=== PATIENT | female | born 1970 | race Caucasian/White ===

== ENCOUNTER 2018-02-26 12:34 | Inpatient (IN) | payer SELFPAY ==
--- NOTE | 2018-02-26 13:14 | ED ---
Substance Abuse/Use - HPI Summary HPI Summary: Pt is a 47 y/o F presenting to the ED with a detox request. She has been drinking on and off for a long time, and has used amphetamines in the past. She had some beer this morning prior to arrival, has high blood pressure, and is burning up. She had some suicidal thoughts yesterday. - History Of Current Complaint Chief Complaint: EDDetoxRequest Stated Complaint: GENERAL Time Seen by Provider: 02/26/18 12:46 Hx Obtained From: Patient Onset/Duration of Drug/ETOH Abuse: Hours Timing Of Abuse: Daily Severity Initially: Mild Severity Currently: Moderate Character: Anxious Aggravating Factor(s): Nothing Alleviating Factor(s): Nothing Associated Signs And Symptoms: Other: - high blood pressure, burning up Related Hx: Suicidal: Thoughts - Allergies/Home Medications Allergies/Adverse Reactions: Allergies Allergy/AdvReac Type Severity Reaction Status Date / Time No Known Allergies Allergy Verified 02/26/18 12:44 Home Medications: Home Medications NK [No Home Medications Reported] 02/26/18 [History Confirmed 02/26/18] PMH/Surg Hx/FS Hx/Imm Hx Previously Healthy: No Endocrine/Hematology History: Denies: Hx Diabetes Psychiatric History: Reports: Hx Substance Abuse Infectious Disease History: No Infectious Disease History: Denies: Traveled Outside the [place] in Last 30 Days - Family History Known Family History: Negative: Renal Disease - Social History Lives: Alone Alcohol Use: Daily Substance Use Type: Reports: Other - amphetamines Review of Systems Negative: Fever Positive: Anxious All Other Systems Reviewed And Are Negative: Yes Physical Exam - Summary Physical Exam Summary: Appearance: Well appearing, anxious affect Skin: warm, dry, reflects adequate perfusion, diffuse rash all over body Head/face: normal Eyes: EOMI, FATOU ENT: normal Neck: supple, non-tender Respiratory: CTA, breath sounds present Cardiovascular: RRR, pulses symmetrical Abdomen: non-tender, soft Musculoskeletal: normal, strength/ROM intact Neuro: normal, sensory motor intact, A&Ox3 Triage Information Reviewed: Yes Vital Signs On Initial Exam: Initial Vitals Temp Pulse Resp BP Pulse Ox 97.9 F 105 16 205/130 99 02/26/18 12:42 02/26/18 12:42 02/26/18 12:42 02/26/18 12:42 02/26/18 12:42 Vital Signs Reviewed: Yes Diagnostics - Vital Signs Vital Signs Temp Pulse Resp BP Pulse Ox 02/26/18 12:42 97.9 F 105 16 205/130 99 - Laboratory Result Diagrams: 02/26/18 13:14 02/26/18 13:14 Lab Statement: Any lab studies that have been ordered have been reviewed, and results considered in the medical decision making process. Course/Dx - Course Course Of Treatment: Pt is a 47 y/o F presenting to the ED with a detox request. She has been drinking on and off for a long time, and has used meth in the past. Bloodwork/UA obtained. The final dx is alcohol withdrawal. The pt will be admitted to the hospitalist, and the pt is agreeable with this plan. - Diagnoses Differential Diagnosis/HQI/PQRI: Positive: Alcohol Abuse, Alcohol Withdrawal, Anxiety, Depression Provider Diagnoses: Alcohol intoxication, Alcohol withdrawal - Physician Notifications Discussed Care Of Patient With: Jasvir Harris - hospitalist Time Discussed With Above Provider: 15:55 Instructed by Provider To: Admit As Inpatient Discharge - Sign-Out/Discharge Documenting (check all that apply): Patient Departure - admit - Discharge Plan Condition: Stable Disposition: ADMITTED TO [facility] Ref[place]: [facility] [place]] - Billing Disposition and Condition Condition: STABLE Disposition: Admitted to [facility] - Attestation Statements Document Initiated by Matheus: Yes Documenting Scribe: Sonja Orellana Provider For Whom Matheus is Documenting (Include Credential): Aníbal Betancur MD. Scribe Attestation: Sonja Goode scribed for Aníbal Betancur MD. on 02/26/18 at 1628. Scribe Documentation Reviewed: Yes Provider Attestation: The documentation as recorded by the Sonja asher accurately reflects the service I personally performed and the decisions made by , Aníbal Betancur MD. Status of Scribe Document: Viewed
[2018-02-26 13:20] LABS: ABS Basophils 0.1 10^3/ul (0-0.2); ABS Eosinophils 0.1 10^3/ul (0-0.6); ABS Monocytes 0.4 10^3/ul (0-0.8); ABS Neutrophils 5.6 10^3/ul (1.5-7.7); ABS Nucleated RBC 0 10^3/ul; Eosinophil % 1.2 %; Hematocrit 40 % (35-47); Hemoglobin 13.5 g/dl (12.0-16.0); Lymphocyte % 24.1 %; Mean Corpuscular HGB Conc 33 g/dl (31-36); Mean Corpuscular Hemoglobin 28 pg (27-31); Mean Corpuscular Volume 83 fL (80-97); Mean Platelet Volume 6.7 fL (7.4-10.4); Nucleated Red Blood Cells % 0; Platelet Count 459 10^3/ul (150-450); Red Blood Count 4.89 10^6/ul (4.00-5.40); Red Cell Distribution Width 17 % (10.5-15); White Blood Count 8.1 10^3/ul (3.5-10.8)
[2018-02-26 13:44] LABS: ALT 17 U/L (7-52); AST 21 U/L (13-39); Albumin 4.4 g/dL (3.2-5.2); Albumin/Globulin Ratio 1.3 (1-3); Alkaline Phosphatase 69 U/L (34-104); Anion Gap 11 mmol/L (2-11); BUN/Creatinine Ratio 17.2 (8-20); Blood Urea Nitrogen 15 mg/dL (6-24); CO2 Carbon Dioxide 24 mmol/L (22-32); Calcium 9.8 mg/dL (8.6-10.3); Chloride 101 mmol/L (101-111); EGFR Non-African American 69.2 (>60); Globulin 3.3 g/dL (2-4); Glucose 83 mg/dL (70-100); Potassium 3.5 mmol/L (3.5-5.0); Sodium 136 mmol/L (135-145); Total Protein 7.7 g/dL (6.4-8.9)
[2018-02-26 13:50] LABS: HCG Pregnancy < 0.60 mIU/mL
[2018-02-26 13:58] LABS: Acetaminophen < 15 mcg/mL; Alcohol 33 mg/dL (<10); Salicylate < 2.50 mg/dL (<30)
[2018-02-26 14:14] LABS: TSH (Thyroid Stimulating Horm) 2.26 mcIU/mL (0.34-5.60)
[2018-02-26] MEDS ORDERED: cloNIDine TAB* 0.1 MG PO ONE ×2 (15:06→15:09)
[2018-02-26] MEDS ORDERED: cloNIDine TAB* 0.1 MG ONE (15:08)
[2018-02-26 15:50] LABS: Barbiturates Urine Screen None Detected (None Detect); Benzodiazepine Urine Screen None Detected (None Detect); Urine Cannabinoids Screen None Detected (None Detect)
[2018-02-26] MEDS ORDERED: LORazepam TAB(*) 1 MG PO ONE (15:54)
[2018-02-26] MEDS ORDERED: Acetaminophen TAB* 325 MG PO PRN (16:41)
[2018-02-26] MEDS ORDERED: Al Hydrox/Mg Hydrox/Simet LIQ* 30 ML UDC PO PRN (16:41)
[2018-02-26] MEDS ORDERED: Ondansetron INJ* 2 MG/ML VIAL IV PRN (16:41)
[2018-02-26] MEDS ORDERED: Thiamine IV* 100 MG/ML 2 ML VIAL IM ONE (16:44)
[2018-02-26] MEDS ORDERED: NS 0.9% 1000 ML* 1,000 ML IV SCH (16:45)
[2018-02-26] MEDS ORDERED: hydrALAZINE IV* 20 MG/ML VIAL IV SLOW PU PRN (16:45)
[2018-02-26] MEDS ORDERED: NS 0.9% 1000 ML* 1,000 ML IV ONE (16:53)
[2018-02-26 16:57] LABS: Urine Appearance Cloudy; Urine Blood Negative (Negative); Urine Color Yellow; Urine Ketones Negative (Negative); Urine Protein 1+(30 mg/dL) (Negative); Urine Specific Gravity 1.015 (1.010-1.030); Urine Urobilinogen Negative (Negative)
[2018-02-26 16:58] LABS: Urine Bilirubin Negative (Negative); Urine Glucose Negative (Negative); Urine Nitrite Negative (Negative)
[2018-02-26] MEDS ORDERED: LORazepam INJ* 2 MG/ML 1 ML VIAL IV PUSH SCH (17:00)
[2018-02-26 17:06] LABS: Urine Bacteria Absent (Absent); Urine Red Blood Cell Absent (Absent); Urine White Blood Cell 2+(11-20/hpf) (Absent)
--- NOTE | 2018-02-26 20:38 | HP ---
AMENDED REPORT NOW INCLUDES DESIGNATED COSIGNER HISTORY AND PHYSICAL: DATE OF ADMISSION: 02/26/18 PRIMARY CARE PROVIDER: None. ATTENDING PHYSICIAN: Dr. Jasvir Harris * (dictated by Marie Blas NP). CHIEF COMPLAINT: Alcohol withdrawal. HISTORY OF PRESENT ILLNESS: Ms. Sanchez is a 47-year-old female with past medical history of alcohol abuse, ADHD, depression and anxiety, who presented to the emergency room today seeking admission to the hospital for alcohol withdrawal management. The patient has a longstanding history of alcohol dependence. She reports that she began drinking in her mid 20s. She describes herself as a binge drinker and reports that she has had multiple periods of sobriety since she began drinking. The most recent period was 1-1/2 years of sobriety. Approximately 1 month ago, she began drinking again due to family stressors, although she reports that she had not been drinking significantly this past month. She does report that in the last week she has been binge drinking. It is difficult for her to quantify the amount of alcohol, though she reports that yesterday she drank 1 pint of vodka, a 6-pack of beer and multiple shots of hard liquor. She does note that she recently moved to the area from [place] and so she does lack a good support system. She has had legal trouble from her alcoholism and has had 2 DWIs, with the most recent in 2012. She does not have a license at this time, which is one of her stressors as she is not able to drive. The patient does report that she was taking methylphenidate up until approximately 1 week ago. This was being prescribed to her by her previous doctor in [place], though she has been off it for 1 week. She also reports that approximately 10 days ago she went to the emergency room at [facility] because of a toothache and was prescribed a 14-day course of clindamycin, which she has completed 10 days of. She denies any further dental pain. In the emergency room, the patient had labs, which were essentially unremarkable. She did have a serum alcohol level of 33 and reported that she had drank approximately 1 hour prior to presenting to the emergency room. She was noted to have multiple small lesions covering her body and reports that approximately a year ago she had a staph infection for which she was treated with antibiotics. She was noted to be hypertensive with systolic blood pressure up to the 200s and diastolic up to 130. After my exam with the patient , the patient's nurse was in the room placing a new IV, the patient did report a fear of needles and had a vasovagal episode, during which time her blood pressure dropped to 77/43. She did not lose consciousness and recovered quickly. Blood pressure a few minutes later was 113/82. Because of the need for monitoring during this acute alcohol withdrawal, the hospitalist service was asked to evaluate for admission. PAST MEDICAL HISTORY: 1. Alcohol abuse. 2. IV drug use (last used approximately 3 years ago). 3. ADHD. 4. Depression. 5. Anxiety. PAST SURGICAL HISTORY: None. HOME MEDICATIONS: Clindamycin, unknown dose. ALLERGIES: No known drug allergies. FAMILY HISTORY: The patient reports that her mother has had a valve replacement , lymphoma, and hypertension. She reports that her father has hypertension, hyperlipidemia and has had a bypass in the past. She notes one of her sisters recently had a TIA. SOCIAL HISTORY: The patient denies any tobacco or current recreational drug use. She reports that she used heroin intravenously approximately 10 to 12 times 3 years ago, though she has not used any illicit drugs since that time. She is not currently employed and she lives with her significant other. Her significant other, Harrison Chatterjee, will be her surrogate decision maker in the event she is unable to make her own decisions. REVIEW OF SYSTEMS: An 11-point review of systems was performed and all the pertinent positive and negative findings are in the HPI. All other systems are negative. PHYSICAL EXAMINATION GENERAL: Ms. Sanchez is a well-developed, well-nourished white woman, sitting up in bed, in no acute distress. She appears her stated age. VITAL SIGNS: Temp 97.9, heart rate 75, respiratory rate 30, oxygen saturation 100% on room air, and blood pressure 113/82. HEENT: Head is normocephalic, atraumatic. Visual bryant are grossly intact. Pupils are equal, round, and reactive to light and accommodation. Sclerae without icterus. Oral mucous membranes moist. NECK: Full range of motion. Trachea at midline. No lymphadenopathy. RESPIRATORY: Symmetrical chest expansion. No chest wall deformities. Lungs clear to auscultation throughout. No rhonchi, wheezes, or rales. CARDIOVASCULAR: Regular rate and rhythm. S1, S2 present. No murmurs, rubs, or gallops. ABDOMEN: Soft, nontender to palpation. Bowel sounds normoactive throughout. No hepatomegaly. EXTREMITIES: Skin warm and smooth bilaterally. No edema. No clubbing or cyanosis. Pedal pulses 2+ bilaterally. MUSCULOSKELETAL: Full range of motion. No pain or deformities. NEURO: Awake, alert, and oriented x4. She is hyperverbal and has a disorganized thought process. Cranial nerves II through XII are grossly intact. Moves all extremities. SKIN: There are multiple scattered erythematous lesions measuring approximately 1 to 3 cm in diameter. There is no evidence of infection in any of these lesions. DIAGNOSTIC STUDIES/LAB DATA: WBC 8.1, RBC 4.89, hemoglobin 13.5, hematocrit 40 , platelets 459. Sodium 136, potassium 3.5, chloride 101, carbon dioxide 24, BUN 15, creatinine 0.87, glucose 83. Total bili 0.5, AST 21, ALT 17, alk phos 69. Urinalysis shows 1+ protein and 2+ wbc's. Toxicology screen is negative. Serum alcohol 33. ASSESSMENT AND PLAN: Ms. Sanchez is a 47-year-old female with past medical history of alcohol dependence, attention deficit hyperactivity disorder, depression and anxiety, who presented to the emergency room today seeking admission for alcohol withdrawal. She will be admitted inpatient for: 1. Alcohol withdrawal. At this point, the patient has mild symptoms including nausea, a very mild tremor and some notable hypertension. She was given 2 mg of lorazepam in the emergency room. She will be placed on WAM protocol every 2 hours with IV lorazepam. She has also been placed on folic acid, thiamine and a multivitamin for prophylaxis. I have placed a nursing home social worker consult due to her alcohol dependence. I will also place her on telemetry to monitor for tachycardia. 2. Attention deficit hyperactivity disorder, depression, and anxiety. The patient is not currently taking any medications. She does note that she has had some suicidal thoughts in the last month, though does not currently have any suicidal thoughts and feels as though her suicidal thoughts may coincide with her menstrual cycle. I have placed a psych consult, though she does not require a one-to-one at this point. 3. Fluids, electrolytes, and nutrition: I will place the patient on normal saline at 100 mL per hour overnight and we will reassess the need for IV fluids in the morning. She does not require any electrolyte repletion at this time. I have ordered a regular diet. 4. Code status: The patient will be a full code. 5. DVT prophylaxis: According to the DVT Risk Assessment, the patient scores a 1 putting her at low risk. I have ordered RAYO stockings. TIME SPENT: Approximately 60 minutes was spent on this admission, greater than half of that time spent [id number] with the patient obtaining my history, performing my physical exam, and reviewing the plan of care. This case has been reviewed with my attending, Dr. Harris, who is in agreement with the plan of care. MARIE BLAS, PAIL TESTER [id number]/[facility] #: [id number] JAY
[2018-02-27 06:25] LABS: ABS Basophils 0 10^3/ul (0-0.2); ABS Eosinophils 0.3 10^3/ul (0-0.6); ABS Monocytes 0.3 10^3/ul (0-0.8); ABS Neutrophils 2.6 10^3/ul (1.5-7.7); ABS Nucleated RBC 0 10^3/ul; Eosinophil % 5.4 %; Hematocrit 36 % (35-47); Hemoglobin 12.1 g/dl (12.0-16.0); Lymphocyte % 38.5 %; Mean Corpuscular HGB Conc 34 g/dl (31-36); Mean Corpuscular Hemoglobin 28 pg (27-31); Mean Corpuscular Volume 83 fL (80-97); Mean Platelet Volume 6.8 fL (7.4-10.4); Nucleated Red Blood Cells % 0.2; Platelet Count 340 10^3/ul (150-450); Red Blood Count 4.28 10^6/ul (4.00-5.40); Red Cell Distribution Width 17 % (10.5-15); White Blood Count 5.3 10^3/ul (3.5-10.8)
[2018-02-27 06:46] LABS: BUN/Creatinine Ratio 19.7 (8-20); EGFR Non-African American 80.9 (>60); Potassium 3.8 mmol/L (3.5-5.0)
[2018-02-27] MEDS: Folic Acid TAB* 1 MG PO SCH (09:42)
[2018-02-27] MEDS: LORazepam TAB(*) 1 MG PO SCH (09:42)
[2018-02-27] MEDS: Multivitamins/Minerals TAB PO SCH (09:42)
[2018-02-27] MEDS: Thiamine TAB* 100 MG TAB PO SCH (09:42)
--- NOTE | 2018-02-27 13:51 | PN ---
Subjective Date of Service: 02/27/18 Interval History: Ms. Sanchez is feeling better today. She feels as though her symptoms are somewhat improved, but she continues to have nausea and a mild tremor. She slept well overnight. No hallucinations or confusion. She is motivated to remain sober. She denies CP, SOB, dizziness. Family History: Unchanged from Admission Social History: Unchanged from Admission Past Medical History: Unchanged from Admission Objective Active Medications: Acetaminophen (Tylenol Tab*) 650 mg PO Q4H PRN FEVER/PAIN Al Hydrox/Mg Hydrox/Simethicone (Maalox Plus*) 30 ml PO Q6H PRN INDIGESTION Folic Acid (Folvite Tab*) 1 mg PO DAILY [facility] Hydralazine HCl (Apresoline Iv*) 5 mg IV SLOW PU Q6H PRN BLOOD PRESSURE Lorazepam (Ativan Tab(*)) 0 - 6 mg PO .PER [facility] PROTOCOL [facility]; Protocol Multivitamins/Minerals (Theragran/Minerals Tab*) 1 tab PO DAILY [facility] Ondansetron HCl (Zofran Inj*) 4 mg IV Q4H PRN NAUSEA/VOMITING Thiamine HCl (Vitamin B-1 Tab*) 100 mg PO DAILY [facility] Vital Signs - 8 hr 02/27/18 02/27/18 02/27/18 06:12 08:00 08:36 Temperature 98.2 F Pulse Rate 71 79 Respiratory 18 16 20 Rate Blood Pressure 156/81 146/81 (mmHg) O2 Sat by Pulse 100 99 Oximetry 02/27/18 02/27/18 02/27/18 09:04 09:42 10:18 Temperature 97.7 F 98.2 F Pulse Rate 71 79 Respiratory 14 16 20 Rate Blood Pressure 143/98 159/95 (mmHg) O2 Sat by Pulse 98 100 Oximetry 02/27/18 02/27/18 12:32 13:01 Temperature 96.7 F Pulse Rate 79 Respiratory 14 16 Rate Blood Pressure 131/75 (mmHg) O2 Sat by Pulse Oximetry Oxygen Devices in Use Now: None Appearance: Middle-aged female laying in bed in NAD; Appears anxious Eyes: No Scleral Icterus Ears/Nose/Mouth/Throat: Mucous Membranes Moist Neck: NL Appearance and Movements; NL JVP, Trachea Midline Respiratory: Symmetrical Chest Expansion and Respiratory Effort, Clear to Auscultation Cardiovascular: NL Sounds; No Murmurs; No JVD, RRR Abdominal: NL Sounds; No Tenderness; No Distention Extremities: No Edema Skin: - - Multiple scattered healing lesions Neurological: Alert and Oriented x 3, NL Gait Lines/Tubes/Other Access: Clean, Dry and Intact Peripheral IV Nutrition: Taking PO's Result Diagrams: 02/27/18 06:05 02/27/18 06:05 Assess/Plan/Problems-Billing Assessment: Ms. Sanchez is a 47 yo F with PMH of polysubstance abuse, ADHD, depression, and anxiety; presented to the ED and was found to be significantly hypertensive and requesting admission for alcohol withdrawal. - Patient Problems (1) Alcohol withdrawal Code(s): F10.239 - ALCOHOL DEPENDENCE WITH WITHDRAWAL, UNSPECIFIED Comment: - Last drink was on the day of admission, alcohol level 33 in the ED - Has gone through withdrawal in the past and experienced severe symptoms including hallucinations, but only experiencing mild tremor and nausea at this time; no seizure history - Social work consult - Continue WAM with lorazepam per protocol, multivitamin, thiamine, folic acid (2) Hypertensive urgency Code(s): I16.0 - HYPERTENSIVE URGENCY Comment: - Secondary to alcohol withdrawal - BP up to 231/112 in the ED; now improved, SBP 130-150s - Improved with lorazepam for WAM protocol - Continue hydralazine PRN (3) ADHD Comment: - Stopped taking methylphenidate approx 1 week ago and does not want to restart , but feels as though she needs help managing her symptoms - Appreciate Psych consult (4) Anxiety and depression Code(s): F41.9 - ANXIETY DISORDER, UNSPECIFIED; F32.9 - MAJOR DEPRESSIVE DISORDER, SINGLE EPISODE, UNSPECIFIED Comment: - Not currently on medication, but would like help managing symptoms - Appreciate Psych consult (5) DVT prophylaxis Current Visit: Yes Status: Acute Code(s): QSZ9607 - SNOMED Code(s): 537374042 Comment: - RAOY stockings and ambulation (6) Full code status Current Visit: Yes Status: Acute Code(s): Z78.9 - OTHER SPECIFIED HEALTH STATUS SNOMED Code(s): 392753284 Comment: Status and Disposition: Inpatient for alcohol withdrawal. Pending social work consult. Anticipate d/c home when medically stable. Attending: Campbell Jeong
[2018-02-27] MEDS: LORazepam TAB(*) 0.5 MG PO PRN ×2 (16:24→21:23)
[2018-02-28] MEDS: LORazepam TAB(*) 1 MG PO SCH ×3 (00:26→15:39)
[2018-02-28] MEDS: Thiamine TAB* 100 MG TAB PO SCH (08:18)
[2018-02-28] MEDS: Folic Acid TAB* 1 MG PO SCH (08:18)
[2018-02-28] MEDS: Multivitamins/Minerals TAB PO SCH (08:18)
[2018-02-28] MEDS ORDERED: cloNIDine TAB* 0.1 MG PO SCH (15:00)
[2018-02-28 15:34] VITALS: BP 172/92
--- NOTE | 2018-02-28 17:24 | PN ---
Subjective Date of Service: 02/28/18 Interval History: Ms. Sanchez is anxious today. She was not pleased with her conversation with Dr. Dykes and is frustrated about lack of medication to manage her symptoms. She understands that outpatient follow up will be necessary. She has threatened to leave AMA multiple times today. Denies CP, SOB, N/V. Withdrawal symptoms improving. Family History: Unchanged from Admission Social History: Unchanged from Admission Past Medical History: Unchanged from Admission Objective Active Medications: Acetaminophen (Tylenol Tab*) 650 mg PO Q4H PRN FEVER/PAIN Al Hydrox/Mg Hydrox/Simethicone (Maalox Plus*) 30 ml PO Q6H PRN INDIGESTION Clonidine HCl (Catapres Tab*) 0.1 mg PO TID [facility] Folic Acid (Folvite Tab*) 1 mg PO DAILY [facility] Hydralazine HCl (Apresoline Iv*) 5 mg IV SLOW PU Q6H PRN BLOOD PRESSURE Lorazepam (Ativan Tab(*)) 0 - 6 mg PO .PER [facility] PROTOCOL [facility]; Protocol Lorazepam (Ativan Tab(*)) 0.5 mg PO Q6H PRN ANXIETY Multivitamins/Minerals (Theragran/Minerals Tab*) 1 tab PO DAILY [facility] Ondansetron HCl (Zofran Inj*) 4 mg IV Q4H PRN NAUSEA/VOMITING Thiamine HCl (Vitamin B-1 Tab*) 100 mg PO DAILY [facility] Vital Signs - 8 hr 02/28/18 02/28/18 02/28/18 10:08 10:25 12:23 Temperature 98.0 F 98.0 F Pulse Rate 77 78 Respiratory 18 16 22 Rate Blood Pressure 154/95 142/73 (mmHg) O2 Sat by Pulse 99 99 Oximetry 02/28/18 02/28/18 02/28/18 12:45 15:24 15:39 Temperature 98.0 F Pulse Rate 94 Respiratory 18 20 18 Rate Blood Pressure 172/92 (mmHg) O2 Sat by Pulse 100 Oximetry Oxygen Devices in Use Now: None Appearance: Middle-aged female sitting in bed in NAD Eyes: No Scleral Icterus Ears/Nose/Mouth/Throat: Mucous Membranes Moist Neck: NL Appearance and Movements; NL JVP, Trachea Midline Respiratory: Symmetrical Chest Expansion and Respiratory Effort, Clear to Auscultation Cardiovascular: NL Sounds; No Murmurs; No JVD, RRR Abdominal: NL Sounds; No Tenderness; No Distention Extremities: No Edema Neurological: Alert and Oriented x 3, NL Gait Lines/Tubes/Other Access: Clean, Dry and Intact Peripheral IV Nutrition: Taking PO's Result Diagrams: 02/27/18 06:05 02/27/18 06:05 Assess/Plan/Problems-Billing Assessment: Ms. Sanchez is a 47 yo F with PMH of polysubstance abuse, ADHD, depression, and anxiety; presented to the ED and was found to be significantly hypertensive and requesting admission for alcohol withdrawal. - Patient Problems (1) Alcohol withdrawal Code(s): F10.239 - ALCOHOL DEPENDENCE WITH WITHDRAWAL, UNSPECIFIED Comment: - Last drink was on the day of admission, alcohol level 33 in the ED - Has gone through withdrawal in the past and experienced severe symptoms including hallucinations, but only experiencing mild tremor and nausea at this time; no seizure history - Social work consult - Continue WAM with lorazepam per protocol, multivitamin, thiamine, folic acid; start clonidine (2) Hypertensive urgency Code(s): I16.0 - HYPERTENSIVE URGENCY Comment: - Secondary to alcohol withdrawal - BP up to 231/112 in the ED; now improved, SBP 130-150s - Improved with lorazepam for WAM protocol - Continue hydralazine PRN (3) ADHD Comment: - Stopped taking methylphenidate approx 1 week ago and does not want to restart , but feels as though she needs help managing her symptoms - Appreciate Psych consult; recommends outpatient follow up, no medication at this time (4) Anxiety and depression Code(s): F41.9 - ANXIETY DISORDER, UNSPECIFIED; F32.9 - MAJOR DEPRESSIVE DISORDER, SINGLE EPISODE, UNSPECIFIED Comment: - Not currently on medication, but would like help managing symptoms - Appreciate Psych consult; recommends outpatient follow up (5) DVT prophylaxis Current Visit: Yes Status: Acute Code(s): JRI4641 - SNOMED Code(s): 425459885 Comment: - Ambulation (6) Full code status Current Visit: Yes Status: Acute Code(s): Z78.9 - OTHER SPECIFIED HEALTH STATUS SNOMED Code(s): 581231834 Comment: Status and Disposition: Inpatient for alcohol withdrawal. Pending social work consult. Anticipate d/c home when medically stable, likely tomorrow. Attending: Jasvir Harris
--- NOTE | 2018-02-28 17:59 | CONS ---
CONSULTATION REPORT: DATE OF CONSULT: 02/28/18. ATTENDING CLINICIAN: Marie Blas NP CONSULTING PHYSICIAN: Dr. José Dykes. REASON FOR CONSULT: Recent suicidal ideation and anxiety. SUBJECTIVE HISTORY: Psychiatry is evaluating this 47-year-old white female with a history of significant alcohol dependence, who is admitted currently to the hospitalist service where she is receding acute detoxification from alcohol. The patient mentioned to the primary team that she has a history of anxiety, depression, and attention deficit disorder and requested consultation with a psychiatrist, particularly for problems with anxiety. She did endorse suicidal ideations as recently as 1 month prior to hospitalization. When I met with the patient, she gives me her story that she had been living in [place] for approximately the last 20 years and had close to 1-1/2 years of sobriety prior to moving to [place], [place] in December 2017 in order to help take care of her father, who has "predementia." Apparently, her 3 youngest children moved with the patient's ex- to [place] and it has been stressful to be away from her kids. An additional stress has been taking care of her father without getting much support from one of her sisters who lives locally. Apparently, the patient relapsed on alcohol 6 weeks ago. She found it hard to cope with living in [place] and felt socially isolated there. She wanted counseling and support for her addiction and mental health problems and felt like moving to [place] was a good place to get enrolled in services. Here, she has a boyfriend who is allowing her to stay with him. I did screen her for neurovegetative symptoms of depression and she did endorse difficulty sleeping; however, she denied anhedonia, guilt, lethargy, concentration problems, appetite disturbance, psychomotor retardation, or current suicidal thinking. She states the most recent she can recall having a suicidal thought was approximately 1 month ago. The patient does endorse a great deal of anxiety telling me that the only two medications that she has tried that have worked were Xanax and Ativan. She denies any history of psychosis or any history of payal. PAST PSYCHIATRIC HISTORY: The patient has previous diagnosis of depression, anxiety and ADHD. She states that until approximately a week ago, she was taking methylphenidate, but then ran out of this. She had been going to an outpatient clinic in [place], [place]. She states that she has had numerous trials of anxiolytics, which have all failed including Paxil, Zoloft, Lexapro, Prozac, Wellbutrin, Celexa, Remeron, Vistaril, BuSpar, and clonidine. "No, no she states, I would not take any of those." She seems to be somewhat med seeking for benzodiazepines. The patient does have a history of 6 to 7 suicide attempts starting at the age of 10 mostly by overdosing, but some by cutting herself. SUBSTANCE ABUSE HISTORY: The patient has been in rehab over 4 times, most recently at the [facility] in [place], [place] where she stayed approximately 9 months until January 2014. She has also had substance abuse inpatient stints at the [facility] both in [place] as well as a facility in [place]. She does indicate that she has dabbled with heroin in the past, but has not used this for 3 years. She denies abuse of tobacco or other illicit drugs. PAST MEDICAL HISTORY: Noncontributory. FAMILY HISTORY: She has an extensive history of both mental illness and substance abuse in her family. Apparently, her paternal aunt shot herself to . She also has a paternal grandfather who in an accident while intoxicated on alcohol. She has a son who is 24 years old who has been abusing heroin and alcohol, although he has been in recovery for the past year. She indicates that he has had suicidal ideations in the past. In addition, she has several cousins with addiction and her father is a recovered alcoholic. SOCIAL HISTORY: The patient was born in [place], [place], but [place], [place]. She does have 2 sisters, an older one and younger one. She is a [employer] graduate who got her undergraduate degree in 2000. She was later for approximately 25 years to the same man , although they just in 2012. Currently, she is in a relationship with a man living here in [place] with whom she is staying. Her current income is based solely on alimony. She has 5 different children, a 27-year-old daughter , 24-year-old son. Her youngest children who are age 16, 13, and 11 are still living with her ex-. 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 Since then, she has been relying on [employer]. Her legal history is quite extensive. She states that she has had between 17 and 18 lifetime incarcerations for crimes related to alcohol intoxication. Her last [facility] stint was in November 2012. Very recently over the fall, she completed probation, although she still does not have a cmv driver's licence secondary to at least 3 total lifetime DWIs. She denies history of service. She denies being mormon or spiritual. MENTAL STATUS EXAMINATION: The patient is a middle-aged white female with eye glasses, who is clean, well groomed, sitting up in bed, makes good eye contact. Her speech is fluent with normal rate, tone, and volume. Mood appears to be mildly anxious with a corresponding anxious affect. Thought process is linear and goal directed. Thought content is significant for her desire to be prescribed benzodiazepines. She denies suicidal or homicidal ideations currently. She denies auditory or visual hallucinations. She denies any symptoms of paranoia. Insight and judgment are fair given her willingness to get hooked up with local substance abuse and mental health services in the community. Cognitively, she is awake and alert with what would appear to be an average intellect. DIAGNOSES: [place] I: Alcohol-induced anxiety disorder, alcohol use disorder. [place] II: Deferred, rule out cluster B traits. IMPRESSION: The patient is a 47-year-old white female with a significant history of alcoholism, who arrived at the hospital, requesting voluntary alcohol detoxification, who is currently on the [address] [place] [address] unit and requesting psychiatric consultation due to anxiety. The patient is somewhat fixated on receiving benzodiazepines and I did explain to her why this would be contraindicated given her ongoing substance abuse problems. I do think that she would be a great candidate for outpatient support in the community and I have recommended that she attend services at the [facility] here in [facility], which she is agreeable with. RECOMMENDATIONS TO PRIMARY TEAM: The patient is psychiatrically cleared and is not in need of more intensive inpatient services. I think that she could be adequately treated in the community. I see that social work has already been formally consulted and I went to their office and spoke to them about getting the patient hooked up with the [facility]. There , the patient can receive med management as well as substance abuse services. The patient is in agreement with this and I did discuss the results of my assessment with attending nurse practitioner, Marie Blas, who expressed understanding. Thank you for the consultation. Psychiatry is signing off, but can be reconsulted in the event of any changes in the patient's presentation. [id number]/CPS #: [id number] MTDD
--- NOTE | 2018-03-01 10:06 | DS ---
DISCHARGE SUMMARY: DATE OF ADMISSION: 02/26/18 DATE OF AMA DISCHARGE: 02/28/18 PRIMARY CARE PROVIDER: None. ATTENDING PHYSICIAN: Dr. Jasvir Harris (dictated by Jerson Blas NP). PRIMARY DIAGNOSES: 1. Acute alcohol withdrawal. 2. Hypertensive urgency. SECONDARY DIAGNOSES: 1. Attention deficit hyperactivity disorder. 2. Anxiety. 3. Depression. HISTORY OF PRESENT ILLNESS AND HOSPITAL COURSE: Ms. Sanchez is a 47-year-old female with past medical history of alcohol abuse, ADHD, depression, and anxiety who presented to the emergency room on 02/26/18 requesting admission for alcohol withdrawal. Please see the history and physical by myself for a complete summary of the events leading up to this hospitalization. In short, the patient has a long history of alcohol abuse and has had multiple periods of sobriety in the last 30 years. She began drinking again approximately 1 month ago and describes herself as a binge drinker. She has required hospitalization in the past for alcohol withdrawal, though has never had any seizures. She felt as though her symptoms were not manageable at home and so presented to the emergency room. In the emergency room, she had essentially unremarkable labs. She did have an alcohol level of 33 and reportedly drank approximately 1 hour prior to presenting to the ER. She was noted to have hypertension with blood pressure up to 231/112. This improved after administration of lorazepam. The patient also did have a vasovagal episode in the emergency room where her pressure dropped to 77/43. This was immediately after an IV insertion and the patient does note that she has a fear of needles. She was admitted by the hospitalist service for alcohol withdrawal. The patient was placed on the [facility] protocol and lorazepam per protocol. She did score pretty consistently within the first 24 hours and then scored intermittently after that. Because of her psychiatric history and her request for medication management, I did consult Psychiatry. Dr. Dykes saw the patient on 02/28/18, at which point he noted that the patient was psychiatrically cleared and not in need of inpatient services. He spoke with the patient about options for medications, though ultimately did not start her on anything as the patient was not open to any of his recommendations. He did recommend followup with [facility] for further management as they do have a psychiatrist on staff who he felt would be able to help manage her psychiatric disorders. After the consultation with Dr. Dykes, the patient became agitated and felt frustrated because she felt as though her symptoms were not able to be managed. She was not open to starting any medications such as BuSpar or hydroxyzine for her anxiety, although it sounds like she did want to restart methylphenidate and/or lorazepam. I did explain to the patient that we would not be prescribing her those medications at this time and if she wanted to obtain prescriptions for controlled substances, she would need to meet with an outpatient psychiatrist who would be able to follow her closely. She seemed to calm down after my conversation with her, though later on in the afternoon again became agitated and was threatening to leave again medical advice. The nurse was able to calm her down at one point, although later in the day the patient ultimately did end up leaving against medical advice. When I met with her earlier in the day, I did describe the risks of leaving against medical advice including worsening of alcohol withdrawal symptoms, seizures, and /or . I will note that her blood pressure did improve and as of 02/28/18, her systolic was in the 140s to 150s. Ideally, the patient would have remained hospitalized for at least one more night so that we were able to get better control of her blood pressure, though she was not willing to stay. Ms. Sanchez left against medical advice today, 02/28/18. Labs, vital signs are as follows: Temp 98.0, heart rate 94, respiratory rate 18, oxygen saturation 100% on room air, blood pressure 172/92. DISCHARGE MEDICATIONS: New Medications: 1. Folic acid 1 mg p.o. daily. 2. Multivitamin 1 tab p.o. daily. 3. Thiamine 100 mg p.o. daily. Discontinued Medication: 1. Clindamycin. DISCHARGE PLAN: Ms. Sanchez left against medical advice presumably to return home with her significant other. Activity should be regular as tolerated. Diet should be regular as tolerated. Medications are noted above. The patient should continue taking folic acid, thiamine, and multivitamin that she was started on here in the hospital because of her history of alcohol abuse. At this point, I have advised that she follow up with the [facility] , where she will be able to establish with a psychiatrist who will hopefully be able to manage her psychiatric disorders more closely. I have also advised her that she should establish with a primary care provider. She was advised to return to the emergency room for any worsening of symptoms or concerning symptoms such as shortness of breath, lightheadedness, dizziness, chest discomfort, high fevers, chills, night sweats, loss of consciousness, or any other worrisome signs or symptoms. This is a summarized report of a complex medical history and hospital stay. For further details, please see the entire medical record. TIME SPENT: Approximately 45 minutes were spent on this discharge. JERSON BLAS, AIRPLANE AND ENGINE INSPECTOR [id number]/CPS #: [id number] JAY
== END 2018-02-28 17:45 | disposition left against medical advice (07) | DRG 894 ==
LOC: ED 12:34 → MED 16:41
PROVIDERS: ADMIT Internal Medicine; ATTEND Internal Medicine
DX: F10.239 Alcohol dependence with withdrawal, unspecified (principal); Y90.1 Blood alcohol level of 20-39 mg/100 ml; I16.0 Hypertensive urgency; F10.280 Alcohol dependence with alcohol-induced anxiety disorder; F90.9 Attention-deficit hyperactivity disorder, unspecified type; F32.9 Major depressive disorder, single episode, unspecified; F11.21 Opioid dependence, in remission; Z79.899 Other long term (current) drug therapy; Z82.49 Family history of ischemic heart disease and other diseases of the circulatory system; Z83.438 Family history of other disorder of lipoprotein metabolism and other lipidemia; Z81.8 Family history of other mental and behavioral disorders; Z81.3 Family history of other psychoactive substance abuse and dependence
CPT/HCPCS: 36415; 80048; 80053; 80307; 80320; 80329; 81003; 81015; 84443; 84702; 85025; 87086; 90686; 99285; A9270-GY; G0480; J2405; J3411

== ENCOUNTER 2018-07-11 10:31 | Inpatient (IN) | payer SELFPAY ==
[2018-07-11] MEDS ORDERED: NS 0.9% 1000 ML** 1,000 ML IV ONE (10:47)
[2018-07-11] MEDS ORDERED: Thiamine IV 100 MG, Folic Acid IV* 1 MG, Multiple Vitamin IV ADULT* 10 ML in NS 0.9% 10... IV ONE (10:48)
--- NOTE | 2018-07-11 10:53 | ED ---
Substance Abuse/Use - HPI Summary HPI Summary: This pt is a 47 y/o female presenting to [facility] requesting alcohol detox. Pt reports she drinks alcohol everyday and has been drinking everyday for the past 4-5 months. She notes her last drink was today around 06:30, she had a shot of vodka. Pt states she has been going through a "hard time" and has a lot of stress. Currently pt notes feeling "hot." Pt has been in detox programs in the past. She states she was sober for 2 years prior to moving from [place] 6 months ago. PMHx: HTN, staph infection (had this for 2 years). She does not take antihypertensive medications. Pt used to take Clonidine for anxiety. Denies tobacco and drug use. FHx: alcoholism. - History Of Current Complaint Chief Complaint: EDDetoxRequest Stated Complaint: ALCOHOL POISONING/REOCURRING STAFF INF PER PT Time Seen by Provider: 07/11/18 10:39 Hx Obtained From: Patient Onset/Duration of Drug/ETOH Abuse: Weeks - 4-5 months Ingestion History: Type/Name Of Drug - Alcohol, Approximate Time Of Ingestion - last ingested alcohol at 0630 today Overdose Characteristics: Oral Timing Of Abuse: Daily Severity Currently: Moderate Character: Anxious Aggravating Factor(s): Recent Stress Alleviating Factor(s): Nothing Associated Signs And Symptoms: Intentional Ingestion, Other: - POS: feeling hot. Related Hx: Drug/Alcohol Last Used @ - alcohol last used at 0630 today - Allergies/Home Medications Allergies/Adverse Reactions: Allergies Allergy/AdvReac Type Severity Reaction Status Date / Time No Known Allergies Allergy Verified 02/26/18 12:44 PMH/Surg Hx/FS Hx/Imm Hx Endocrine/Hematology History: Denies: Hx Diabetes Cardiovascular History: Reports: Hx Hypertension Sensory History: Reports: Hx Contacts or Glasses Denies: Hx Hearing Aid Opthamlomology History: Reports: Hx Contacts or Glasses Psychiatric History: Reports: Hx Anxiety, Hx Substance Abuse - ETOH - Surgical History Surgery Procedure, Year, and Place: in 2002 Infectious Disease History: Yes - [facility] Infectious Disease History: Denies: Traveled Outside the [place] in Last 30 Days - Family History Known Family History: Negative: Renal Disease Family History: Alcoholism - Social History Alcohol Use: Daily - about 1 pint of vodka Substance Use Type: Reports: Other - amphetamines Substance Use Comment - Amount & Last Used: took "speed" Smoking Status (MU): Never Smoked Tobacco Review of Systems Constitutional: Other - POS: feels hot Negative: Fever, Chills Positive: Anxious All Other Systems Reviewed And Are Negative: Yes Physical Exam - Summary Physical Exam Summary: VITAL SIGNS: Reviewed. GENERAL: Patient is a well-developed and nourished female who is lying comfortable in the stretcher. Patient is not in any acute respiratory distress. HEAD AND FACE: No signs of trauma. No ecchymosis, hematomas or skull depressions. No sinus tenderness. EYES: PERRLA, EOMI x 2, No injected conjunctiva, no nystagmus. EARS: Hearing grossly intact. Ear canals and tympanic membranes are within normal limits. MOUTH: Oropharynx within normal limits. Patient has alcohol in her breath. NECK: Supple, trachea is midline, no adenopathy, no JVD, no carotid bruit, no c- spine tenderness, neck with full ROM. CHEST: Symmetric, no tenderness at palpation LUNGS: Clear to auscultation bilaterally. No wheezing or crackles. CVS: Regular rate and rhythm, S1 and S2 present, no murmurs or gallops appreciated. ABDOMEN: Soft, non-tender. No signs of distention. No rebound no guarding, and no masses palpated. Bowel sounds are normal. EXTREMITIES: FROM in all major joints, no edema, no cyanosis or clubbing. NEURO: Alert and oriented x 3. No acute neurological deficits. Speech is normal and follows commands. SKIN: Dry and warm. Multiple small lesions in her upper extremities which are dry and without any discharge. Triage Information Reviewed: Yes Vital Signs On Initial Exam: Initial Vitals Temp Pulse Resp BP Pulse Ox 99.3 F 109 16 177/115 98 07/11/18 10:34 07/11/18 10:34 07/11/18 10:34 07/11/18 10:34 07/11/18 10:34 Vital Signs Reviewed: Yes Diagnostics - Vital Signs Vital Signs Temp Pulse Resp BP Pulse Ox 07/11/18 10:34 99.3 F 109 16 177/115 98 - Laboratory Result Diagrams: 07/11/18 10:57 07/11/18 10:57 Lab Statement: Any lab studies that have been ordered have been reviewed, and results considered in the medical decision making process. - EKG 11:06 Cardiac Rate: NL - at 86 bpm EKG Rhythm: Sinus Rhythm Summary of EKG Findings: No ST elevations. Course/Dx - Course Assessment/Plan: This pt is a 47 y/o female presenting to [facility] requesting alcohol detox. Pt reports she drinks alcohol everyday and has been drinking everyday for the past 4-5 months. She notes her last drink was today around 06: 30, she had a shot of vodka. Pt states she has been going through a "hard time" and has a lot of stress. Currently pt notes feeling "hot.". Pt has been in detox programs in the past. She states she was sober for 2 years prior to moving from [place] 6 months ago. PMHx: HTN, staph infection (had this for 2 years). She does not take antihypertensive medications. Pt used to take Clonidine for anxiety. Denies tobacco and drug use. FHx: alcoholism. Past medical history significant for: 1- Alcohol withdrawal. 2- ADHD. 3- Anxiety and depression. 4- Hypertensive urgency. In the ED course the patient was given IV fluids and banana bag. The patient seems to be stable. Blood work without any significant abnormality except for glucose 118, TSH is 0.12, serum alcohol is 53. The patient was given Ativan and Valium. I believe that the patient is having withdrawal symptoms. I discussed my physical exam, findings and test results with Dr. Lewis from the hospitalist services and she agrees to admit the patient to her services. Patient is hemodynamically stable, alert and oriented x 3. - Diagnoses Provider Diagnoses: Alcohol withdrawal - Physician Notifications Discussed Care Of Patient With: Daisy Lewis - hospitalist Time Discussed With Above Provider: 13:18 Instructed by Provider To: Admit As Inpatient Discharge - Sign-Out/Discharge Documenting (check all that apply): Patient Departure - Admit to [facility] Patient Received Moderate/Deep Sedation with Procedure: No - Discharge Plan Condition: Stable Disposition: ADMITTED TO [facility] Referrals: No Primary Care Phys,NOPCP [Primary Care Provider] - - Attestation Statements Document Initiated by Scribe: Yes Documenting Scribe: Shayy Manjarrez Provider For Whom Scribe is Documenting (Include Credential): Al Gaona MD Scribe Attestation: Shayy Goode, scribed for Al Gaona MD on 07/11/18 at 1401. Status of Scribe Document: Ready
[2018-07-11 11:07] LABS: ABS Basophils 0.1 10^3/ul (0-0.2); ABS Eosinophils 0.1 10^3/ul (0-0.6); ABS Lymphocytes 1.7 10^3/ul (1.0-4.8); ABS Monocytes 0.5 10^3/ul (0-0.8); ABS Neutrophils 5.1 10^3/ul (1.5-7.7); Eosinophil % 1.7 %; Hematocrit 38 % (35-47); Lymphocyte % 22.7 %; Mean Corpuscular HGB Conc 34 g/dL (31-36); Mean Corpuscular Hemoglobin 30 pg (27-31); Mean Corpuscular Volume 88 fL (80-97); Platelet Count 362 10^3/uL (150-450); Red Blood Count 4.36 10^6 /uL (3.70-4.87); Red Cell Distribution Width 15 % (10.5-15); White Blood Count 7.5 10^3/uL (3.5-10.8)
[2018-07-11 11:26] LABS: ALT 13 U/L (7-52); AST 20 U/L (13-39); Albumin 4.2 g/dL (3.2-5.2); Albumin/Globulin Ratio 1.4 (1-3); Alkaline Phosphatase 70 U/L (34-104); Anion Gap 9 mmol/L (2-11); BUN/Creatinine Ratio 22.2 (8-20); Blood Urea Nitrogen 14 mg/dL (6-24); CO2 Carbon Dioxide 23 mmol/L (22-32); Calcium 9.7 mg/dL (8.6-10.3); Chloride 107 mmol/L (101-111); Creatine Kinase 186 U/L (10-223); EGFR African American 121.5 (>60); EGFR Non-African American 100.4 (>60); Globulin 3.1 g/dL (2-4); Glucose 118 mg/dL (70-100); Potassium 3.8 mmol/L (3.5-5.0); Sodium 139 mmol/L (135-145); Total Protein 7.3 g/dL (6.4-8.9)
[2018-07-11 11:30] LABS: HCG Pregnancy < 0.60 mIU/mL
[2018-07-11 11:57] LABS: TSH (Thyroid Stimulating Horm) 0.12 mcIU/mL (0.34-5.60)
[2018-07-11 12:10] LABS: Acetaminophen < 15 mcg/mL; Alcohol 53 mg/dL (<10)
[2018-07-11] MEDS ORDERED: LORazepam INJ* 2 MG/ML 1 ML VIAL IV PUSH ONE (12:54)
[2018-07-11] MEDS ORDERED: Diazepam TAB(*) 5 MG PO ONE (12:55)
[2018-07-11] MEDS ORDERED: Lorazepam PYXIS KEY ONE (13:07)
[2018-07-11] MEDS ORDERED: LORazepam TAB(*) 1 MG PO PRN (15:12)
[2018-07-11] MEDS ORDERED: hydrALAZINE IV* 20 MG/ML VIAL IV SLOW PU PRN (16:01)
[2018-07-11 16:42] LABS: Free T4 0.93 ng/dL (0.61-1.12)
[2018-07-11] MEDS: NS 0.9% 1000 ML** 1,000 ML IV SCH (17:01)
--- NOTE | 2018-07-11 17:43 | HP ---
HISTORY AND PHYSICAL: DATE OF ADMISSION: 07/11/18 PRIMARY CARE PROVIDER: None. CHIEF COMPLAINT: Alcohol withdrawal. HISTORY OF PRESENT ILLNESS: Ms. Sanchez is a 47-year-old female who currently is not providing much medical history as she seems to be in alcohol withdrawal. She states that she has been isolated recently. Due to this, she has been drinking approximately a pint of vodka per day. Sometimes it is more, sometimes it is less. She states that she is feeling like she gets hit with the alcohol much quicker than she has previously. The patient's last drink was at 6 :30 this morning. She presented to the emergency room with request to detox, however, the patient was already showing signs of alcohol withdrawal and therefore the hospitalist service was called to admit the patient for management of her alcohol withdrawal. PAST MEDICAL HISTORY: 1. Alcohol abuse. 2. 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 3. ADHD. 4. Depression/anxiety. PAST SURGICAL HISTORY: x1. MEDICATIONS: None. ALLERGIES: No known drug allergies. FAMILY HISTORY: Mom had a history of lymphoma and hypertension. Dad has a history of hypertension, hyperlipidemia, and coronary artery disease. One sister had a history of TIA, SOCIAL HISTORY: The patient is a non-smoker. She used heroin intravenously 10 to 12 x3 years ago. She is not employed. She is living alone. She is . She has 5 children. REVIEW OF SYSTEMS: A complete 11 system review of systems is obtained. Pertinent positives and negatives are as per HPI and in addition the patient does complain of anxiety and depression, occasional shortness of breath that she notes is worse when she is drinking alcohol. PHYSICAL EXAMINATION GENERAL: The patient is a well-developed middle aged female seen, sitting up in the stretcher, appearing to be somewhat restless, but in no acute distress. VITAL SIGNS: Blood pressure 203/95, pulse 88, respirations 22, temp 99.3, O2 sat 98% on room air. HEENT: Pupils are equal round. Extraocular muscles are intact. Oropharynx is clear. Oral mucosa is moist. PULMONARY: Lungs are clear to auscultation bilaterally. CARDIAC: Normal S1, S2. Heart rate is tachycardic. I do not appreciate any murmurs. There is no lower extremity edema. ABDOMEN: Bowel sounds are present. Abdomen is soft, nontender, nondistended. MUSCULOSKELETAL: There is no cyanosis or clubbing of the digits. There is full active range of motion of all 4 extremities. NEURO: Cranial nerves II through XII are grossly intact. Sensation is intact to light touch throughout. Strength is 5/5 and symmetric in both upper and lower extremities bilaterally. SKIN: Warm and dry. There is not a discrete rash, however, there are numerous picked at lesions all over the patient's body including her face, arms, trunk and legs. She states this is related to a staph infection. PSYCH: The patient is alert. She again is not the best historian at this point. She appears restless. DIAGNOSTIC STUDIES/LAB DATA: WBC 7.5, hemoglobin 13.0, hematocrit 38, platelets 362. Sodium 139, potassium 3.8, chloride 107, CO2 of 23, BUN 14, creatinine 0.63, glucose 118, lactic acid 1.7, calcium 9.7. Bilirubin 0.3, AST 20, ALT 13, alk phos 70. CPK 186. Albumin 4.2. TSH 0.12. Salicylate 2.6. Acetaminophen less than 15. Serum alcohol 53. EKG reveals normal sinus rhythm with probable early repolarization. There are no acute ST-T wave abnormalities. ASSESSMENT AND PLAN: 1. Ms. Sanchez is a 47-year-old female with a history of alcohol abuse, who presented to emergency room with request for detox; however, is already found to be in alcohol withdrawal. However, on alcohol withdrawal, the patient will be admitted and placed on the [facility] protocol. She will be scored every 2 hours. The patient has already received IV thiamine and banana bag in the emergency room. She will continue on an oral multivitamin and thiamine daily. The patient will have a social work consult placed. She will be monitored on . The last time the patient was here she required hospitalization for 4 days. 2. Accelerated hypertension. The patient has marked hypertension with blood pressures up to 200 systolic. The patient has not been taking any medications. During her last hospitalization. She was noted to be markedly hypertensive. She was not discharged on any antihypertensives despite the fact that her blood pressure was 172/92, when she left against medical advice on 02/28/18. For now I am going to start IV hydralazine p.r.n. systolic blood pressures greater than 170. If tomorrow she remains hypertensive as her alcohol withdrawal presumably improve beginning an antihypertensive would be advisable. 3. Depression/anxiety. I am going to start sertraline 50 mg p.o. daily. 4. DVT prophylaxis. According to the Adult Thrombosis Prophylaxis Risk Factor Assessment Guide, the patient has a total risk factor score of 1 making her low risk. Heparin 5000 units subcutaneous q.12 hours will be utilized as DVT prophylaxis. Code status is full. TIME SPENT: Fifty five minutes was spent admitting this patient. [id number]/[facility] #: [id number] JAY
[2018-07-11 18:14] LABS: Urine Appearance Clear; Urine Bilirubin Negative (Negative); Urine Blood Negative (Negative); Urine Color Straw; Urine Glucose Negative (Negative); Urine Ketones Negative (Negative); Urine Nitrite Negative (Negative); Urine Protein Negative (Negative); Urine Specific Gravity 1.005 (1.010-1.030); Urine Urobilinogen Negative (Negative)
[2018-07-11] MEDS: Acetaminophen TAB* 325 MG PO PRN (18:21)
[2018-07-11 18:38] LABS: Urine Benzodiazepine Screen None Detected (None Detect); Urine Opiates Screen None Detected (None Detect)
[2018-07-11] MEDS: LORazepam TAB(*) 1 MG PO PRN ×2 (20:17→21:44)
[2018-07-11] MEDS: hydrALAZINE IV* 20 MG/ML VIAL IV SLOW PU PRN (20:18)
[2018-07-11] MEDS: Heparin VIAL(*) 5000 UNITS/ML VIAL (FIVE THOUSAND) SUBCUT SCH (20:18)
[2018-07-12] MEDS: traMADol TAB* 50 MG PO PRN ×3 (01:52→20:53)
[2018-07-12] MEDS: LORazepam TAB(*) 1 MG PO PRN ×10 (01:52→22:51)
[2018-07-12] MEDS: hydrALAZINE IV* 20 MG/ML VIAL IV SLOW PU PRN ×3 (01:53→10:33)
[2018-07-12] MEDS: Mupirocin 2% OINT* TUBE TOPICAL SCH ×3 (02:37→20:56)
[2018-07-12] MEDS: NS 0.9% 1000 ML** 1,000 ML IV SCH ×2 (02:47→13:10)
[2018-07-12] MEDS: Acetaminophen TAB* 325 MG PO PRN ×3 (03:44→16:14)
[2018-07-12] MEDS: Heparin VIAL(*) 5000 UNITS/ML VIAL (FIVE THOUSAND) SUBCUT SCH ×2 (08:26→20:53)
[2018-07-12] MEDS: Multivitamins/Minerals TAB PO SCH (08:27)
[2018-07-12] MEDS: Thiamine TAB* 100 MG TAB PO SCH (08:27)
[2018-07-12] MEDS: Sertraline* 50 MG TAB PO SCH (08:27)
[2018-07-12] MEDS ORDERED: Ibuprofen TAB* 800 MG PO ONE (09:38)
[2018-07-12] MEDS: amLODIPine TAB* 5 MG PO SCH (10:33)
--- NOTE | 2018-07-12 18:12 | PN ---
Subjective Date of Service: 07/12/18 Interval History: +ALBERTO otherwise no N/V, LH,, anxiety Objective Active Medications: Acetaminophen (Tylenol Tab*) 650 mg PO Q4H PRN PRN Reason: PAIN Last Admin: 07/12/18 16:14 Dose: 650 mg Amlodipine Besylate (Norvasc Tab*) 10 mg PO DAILY [facility] Last Admin: 07/12/18 10:33 Dose: 10 mg Heparin Sodium (Porcine) (Heparin Vial(*)) 5,000 units SUBCUT Q12HR [facility] Last Admin: 07/12/18 08:26 Dose: 5,000 units Hydralazine HCl (Apresoline Iv*) 10 mg IV SLOW PU Q4HR PRN PRN Reason: BLOOD PRESSURE Last Admin: 07/12/18 10:33 Dose: 10 mg Sodium Chloride (Ns 0.9% 1000 Ml) 1,000 mls @ 100 mls/hr IV PER RATE [facility] Last Admin: 07/12/18 13:10 Dose: 100 mls/hr Lorazepam (Ativan Tab(*)) 0 mg PO Q2H PRN; Protocol PRN Reason: anxiety withdrawal Last Admin: 07/12/18 16:14 Dose: 2 mg Multivitamins/Minerals (Theragran/Minerals Tab*) 1 tab PO DAILY [facility] Last Admin: 07/12/18 08:27 Dose: 1 tab Mupirocin (Bactroban 2 % Oint*) 1 applic TOPICAL BID [facility] Last Admin: 07/12/18 08:29 Dose: Not Given Sertraline HCl (Zoloft*) 50 mg PO DAILY [facility] Last Admin: 07/12/18 08:27 Dose: 50 mg Thiamine HCl (Vitamin B-1 Tab*) 100 mg PO DAILY [facility] Last Admin: 07/12/18 08:27 Dose: 100 mg Tramadol HCl (Ultram*) 50 mg PO Q6H PRN PRN Reason: PAIN Last Admin: 07/12/18 10:33 Dose: 50 mg Vital Signs - 8 hr 07/12/18 07/12/18 07/12/18 10:26 10:33 12:00 Temperature 98.0 F Pulse Rate 114 Respiratory 16 16 16 Rate Blood Pressure 131/65 (mmHg) O2 Sat by Pulse 99 Oximetry 07/12/18 07/12/18 07/12/18 12:33 12:35 14:00 Temperature Pulse Rate 121 Respiratory 16 16 Rate Blood Pressure 161/90 (mmHg) O2 Sat by Pulse Oximetry 07/12/18 07/12/18 07/12/18 14:09 14:35 16:00 Temperature 98.1 F Pulse Rate 102 Respiratory 18 17 18 Rate Blood Pressure 141/86 (mmHg) O2 Sat by Pulse 99 Oximetry 07/12/18 07/12/18 07/12/18 16:09 16:14 18:10 Temperature 97.9 F Pulse Rate 97 Respiratory 17 17 16 Rate Blood Pressure 143/81 (mmHg) O2 Sat by Pulse 98 Oximetry Oxygen Devices in Use Now: None Appearance: NAD Eyes: No Scleral Icterus Ears/Nose/Mouth/Throat: NL Teeth, Lips, Gums, Clear Oropharnyx Neck: NL Appearance and Movements; NL JVP Respiratory: Symmetrical Chest Expansion and Respiratory Effort, Clear to Auscultation Cardiovascular: RRR Abdominal: NL Sounds; No Tenderness; No Distention, No Hepatosplenomegaly Lymphatic: No Cervical Adenopathy Skin: No Rash or Ulcers Neurological: Alert and Oriented x 3, - - no tremor Result Diagrams: 07/11/18 10:57 07/11/18 10:57 Microbiology and Other Data: Microbiology 07/11/18 18:29 Nasal Screen MRSA (PCR) - Final Nasal Mrsa Detected Assess/Plan/Problems-Billing Assessment: 47 yo F a/w etoh withdrawal - Patient Problems (1) Alcohol withdrawal Comment: c/w WAM, ativan , folic acid (2) Anxiety and depression Comment: zoloft (3) DVT prophylaxis Comment: HSQ
[2018-07-13] MEDS: LORazepam TAB(*) 1 MG PO PRN ×6 (07:22→23:35)
[2018-07-13] MEDS: amLODIPine TAB* 5 MG PO SCH (07:23)
[2018-07-13] MEDS: Mupirocin 2% OINT* TUBE TOPICAL SCH ×2 (07:23→21:18)
[2018-07-13] MEDS: Thiamine TAB* 100 MG TAB PO SCH (07:23)
[2018-07-13] MEDS: Sertraline* 50 MG TAB PO SCH (07:23)
[2018-07-13] MEDS: Multivitamins/Minerals TAB PO SCH (07:23)
[2018-07-13] MEDS: Heparin VIAL(*) 5000 UNITS/ML VIAL (FIVE THOUSAND) SUBCUT SCH ×2 (07:23→20:13)
--- NOTE | 2018-07-13 17:13 | PN ---
Subjective Date of Service: 07/13/18 Interval History: Feeling better today Thinking about being at home but willing to stay Objective Active Medications: Acetaminophen (Tylenol Tab*) 650 mg PO Q4H PRN PRN Reason: PAIN Last Admin: 07/12/18 16:14 Dose: 650 mg Amlodipine Besylate (Norvasc Tab*) 10 mg PO DAILY [facility] Last Admin: 07/13/18 07:23 Dose: 10 mg Heparin Sodium (Porcine) (Heparin Vial(*)) 5,000 units SUBCUT Q12HR [facility] Last Admin: 07/13/18 07:23 Dose: 5,000 units Hydralazine HCl (Apresoline Iv*) 10 mg IV SLOW PU Q4HR PRN PRN Reason: BLOOD PRESSURE Last Admin: 07/12/18 10:33 Dose: 10 mg Lorazepam (Ativan Tab(*)) 0 mg PO Q2H PRN; Protocol PRN Reason: anxiety withdrawal Last Admin: 07/13/18 15:00 Dose: 4 mg Multivitamins/Minerals (Theragran/Minerals Tab*) 1 tab PO DAILY [facility] Last Admin: 07/13/18 07:23 Dose: 1 tab Mupirocin (Bactroban 2 % Oint*) 1 applic TOPICAL BID [facility] Last Admin: 07/13/18 07:23 Dose: Not Given Sertraline HCl (Zoloft*) 50 mg PO DAILY [facility] Last Admin: 07/13/18 07:23 Dose: 50 mg Thiamine HCl (Vitamin B-1 Tab*) 100 mg PO DAILY [facility] Last Admin: 07/13/18 07:23 Dose: 100 mg Tramadol HCl (Ultram*) 50 mg PO Q6H PRN PRN Reason: PAIN Last Admin: 07/12/18 20:53 Dose: 50 mg Vital Signs - 8 hr 07/13/18 07/13/18 07/13/18 10:24 10:32 10:38 Temperature 98.2 F Pulse Rate 111 Respiratory 16 20 20 Rate Blood Pressure 155/79 (mmHg) O2 Sat by Pulse 97 Oximetry 07/13/18 07/13/18 07/13/18 12:34 12:51 12:56 Temperature 98.2 F Pulse Rate 94 Respiratory 18 18 18 Rate Blood Pressure 148/77 (mmHg) O2 Sat by Pulse 96 Oximetry 07/13/18 07/13/18 07/13/18 13:20 14:52 15:00 Temperature 98.4 F Pulse Rate 115 Respiratory 18 20 20 Rate Blood Pressure 156/79 (mmHg) O2 Sat by Pulse 96 Oximetry 07/13/18 16:10 Temperature Pulse Rate Respiratory 18 Rate Blood Pressure (mmHg) O2 Sat by Pulse Oximetry Oxygen Devices in Use Now: None Appearance: NAD Eyes: No Scleral Icterus, PERRLA Ears/Nose/Mouth/Throat: Clear Oropharnyx Neck: NL Appearance and Movements; NL JVP, Trachea Midline Respiratory: Symmetrical Chest Expansion and Respiratory Effort, Clear to Auscultation Cardiovascular: NL Sounds; No Murmurs; No JVD, RRR Abdominal: NL Sounds; No Tenderness; No Distention Lymphatic: No Cervical Adenopathy Extremities: No Edema Neurological: Alert and Oriented x 3, - - no tremor Result Diagrams: 07/11/18 10:57 07/11/18 10:57 Microbiology and Other Data: Microbiology 07/11/18 18:29 Nasal Screen MRSA (PCR) - Final Nasal Mrsa Detected Assess/Plan/Problems-Billing Assessment: 47 yo F a/w etoh withdrawal - Patient Problems (1) Alcohol withdrawal Comment: c/w WAM, ativan , folic acid (2) Anxiety and depression Comment: zoloft (3) DVT prophylaxis Comment: HSQ
[2018-07-13] MEDS ORDERED: Lorazepam PYXIS KEY PRN (17:44)
[2018-07-13] MEDS ORDERED: LORazepam INJ* 2 MG/ML 1 ML VIAL IV PUSH ONE (17:45)
[2018-07-14] MEDS: Gabapentin CAP(*) 300 MG PO SCH ×2 (03:44→08:34)
[2018-07-14] MEDS: LORazepam TAB(*) 1 MG PO PRN ×3 (03:44→08:35)
[2018-07-14] MEDS: Sertraline* 50 MG TAB PO SCH (08:33)
[2018-07-14] MEDS: Multivitamins/Minerals TAB PO SCH (08:33)
[2018-07-14] MEDS: amLODIPine TAB* 5 MG PO SCH (08:34)
[2018-07-14] MEDS: Heparin VIAL(*) 5000 UNITS/ML VIAL (FIVE THOUSAND) SUBCUT SCH (08:34)
[2018-07-14] MEDS: Mupirocin 2% OINT* TUBE TOPICAL SCH (08:35)
[2018-07-14] MEDS: Thiamine TAB* 100 MG TAB PO SCH (08:37)
[2018-07-14 11:10] VITALS: BP 134/78
--- NOTE | 2018-07-15 01:02 | DS ---
DISCHARGE SUMMARY: DATE OF ADMISSION: 07/11/18 DATE OF DISCHARGE: 07/14/18 PRIMARY CARE PHYSICIAN: None. PRIMARY DIAGNOSES: 1. Alcohol abuse, complicated by withdrawal. 2. Hypertensive urgency. SECONDARY DIAGNOSIS: Anxiety. DISCHARGE MEDICATIONS: 1. Lorazepam 1 mg every 6 hours as needed for withdrawal. The patient is only prescribed 4 tablets. 2. Gabapentin 300 mg nightly. 3. Sertraline 50 mg daily. 4. Amlodipine 10 mg nightly. 5. Thiamine 100 mg daily. 6. Folic acid 1 mg daily. 7. Multivitamin 1 tab p.o. daily. 8. Mupirocin 2% ointment 1 application twice a day. HISTORY OF PRESENT ILLNESS: Ms. Sanchez is a 47-year-old woman with a history of alcohol use disorder, prior IV drug use, ADHD, depression, anxiety, MRSA skin infections, who presented to the emergency room with alcohol withdrawal. Of note, she was unable to provide much history as she had been in withdrawal during initial interview. She states that she has been recently isolated. Due to this, she has been drinking approximately 1 pint of vodka per day, but sometimes more. She states that she feels like she gets hit with the alcohol much quicker than previously. The patient's last drink was at 6:30 on morning of presentation, and she presented to request detox. However, she was already showing signs of alcohol withdrawal on interview. So, therefore the hospitalist service was called to admit the patient for management of alcohol withdrawal. HOSPITAL COURSE: The patient was noted to be in alcohol withdrawal on physical examination on presentation, so she was initiated on the [facility] protocol. She also received IV thiamine with IV fluids and nutrition in the emergency room. She was noted to have systolic blood pressure up to 200. She denies history of taking high blood pressure medications and she was noted to be markedly hypertensive during her prior admission for alcohol withdrawal where she had left against medical advice approximately 5 months ago. She was initiated on amlodipine during this hospitalization. Also given her significant history of depression and anxiety, she was initiated on sertraline 50 mg daily, which she tolerated well. The patient frequently expressed desire to leave the hospital, but was redirectable and had agreed to stay until her benzo dosing became infrequent. After 3 days of admission, she had still received a dose of benzodiazepine in the morning, but had preferred to leave the hospital again. She was extensively educated on safe discharge planning, importance of taking newly initiated medications, and importance of long-term outpatient followup for chronic medical illnesses. On the day of discharge, 10-point review of systems was performed and notable only for mild anxiety. Otherwise, complete 10 -point review of systems was negative. PHYSICAL EXAM: The patient is afebrile. Heart rate 80, respiratory rate 18, oxygen saturation 100% on room air, blood pressure 134/78. In general, she is a well-appearing, friendly, conversant woman, who is alert and interactive, A and O x3. HEENT: Negative tongue fasciculations. Moist mucous membranes. Neck: Supple. Full range of motion intact without pain. No JVD. Herat: Regular rate and rhythm. No murmurs, gallops, or rubs. Lungs: Clear to auscultation bilaterally. Abdomen: Soft, nontender, nondistended. No hepatomegaly appreciated. Extremities: Warm and well perfused. No lower extremity edema. No hand tremor or asterixis. Skin with scattered healing scabs over upper extremities, not in venous distribution. DIAGNOSTIC STUDIES AND IMAGING: Labs reviewed and significant for normal CBC, BMP, and UA. Tox positive for amphetamines and serum alcohol of 53. ECG poor baseline normal sinus rhythm 86, repolarization abnormality in anterolateral leads. DISCHARGE PLAN: The patient was referred to the [facility] to initiate primary care in [place]. She was also given information to follow up with the [facility] as well as Dermatology Clinic for history of MRSA skin infections. She is to continue SSRI and calcium channel erick initiated during admission for chronic hypertension, anxiety, and depression. She was also started on gabapentin to take nightly, which could possibly help reduce alcohol cravings and she was given 4 tablets of Ativan as she did receive a dose of benzodiazepine on morning of discharge and insisted on leaving the hospital. This was thought to be the safest discharge plan for this patient in case she continues to experience withdrawal symptoms over the coming days. She was extensively educated on return precautions which include, but are not limited to, recurrence of tremor not improved with Ativan 1 mg; diaphoresis; confusion; fevers; chills; and night sweats. She is to eat a healthy diet, low in processed foods, and resume activity level as tolerated. DISPOSITION: Home. CONDITION: Good. TIME SPENT: Approximately 60 minutes was spent on discharge of this patient, more than half of which was spent on care and coordination at bedside for interview and exam. [id number]/[facility] #: [id number] JAY
== END 2018-07-14 13:25 | disposition home or self-care (01) | DRG 897 ==
LOC: ED 10:31 → MED 15:12
PROVIDERS: ADMIT Hospitalist; ATTEND Internal Medicine
DX: F10.239 Alcohol dependence with withdrawal, unspecified (principal); I16.0 Hypertensive urgency; F41.9 Anxiety disorder, unspecified; Y90.2 Blood alcohol level of 40-59 mg/100 ml; I10 Essential (primary) hypertension; F90.9 Attention-deficit hyperactivity disorder, unspecified type; F32.9 Major depressive disorder, single episode, unspecified; Z86.14 Personal history of Methicillin resistant Staphylococcus aureus infection; Z82.49 Family history of ischemic heart disease and other diseases of the circulatory system; Z80.7 Family history of other malignant neoplasms of lymphoid, hematopoietic and related tissues; Z81.1 Family history of alcohol abuse and dependence; R51 Headache
CPT/HCPCS: 36415; 80053; 80307; 80320; 80329; 81003; 82550; 83605; 84439; 84443; 84702; 85025; 87641; 93005; 99285; A9270-GY; G0480; J0360; J1644; J2060; J3411

== ENCOUNTER 2020-04-02 15:15 | Observation (INO) ==
[2020-04-02] MEDS ORDERED: Ziprasidone IM 20 mg VIAL 1 ml VIAL ONE ×2 (15:30→15:32)
[2020-04-02] MEDS ORDERED: Sterile Water for Inj 20 ML ONE (15:30)
[2020-04-02] MEDS ORDERED: LORazepam 2 mg VIAL 1 ml ONE (15:31)
[2020-04-02] MEDS ORDERED: Lorazepam PYXIS KEY ONE (15:31)
[2020-04-02] MEDS: LORazepam 2 mg VIAL 1 ml IV PUSH ONE ×2 (15:45→15:55)
[2020-04-02] MEDS ORDERED: LORazepam 2 mg VIAL 1 ml IM ONE (15:54)
[2020-04-02] MEDS ORDERED: Ziprasidone IM 20 mg VIAL 1 ml VIAL IM ONE (15:54)
[2020-04-02] MEDS ORDERED: Lorazepam PYXIS KEY PRN (15:54)
[2020-04-02 16:53] LABS: ABS Eosinophils 0.1 10^3/ul (0-0.6); ABS Lymphocytes 1.9 10^3/ul (1.0-4.8); ABS Monocytes 0.4 10^3/ul (0-0.8); Eosinophil % 1.2 %; Hematocrit 42 % (35-47); Hemoglobin 14.5 g/dL (12.0-16.0); Mean Corpuscular HGB Conc 34 g/dL (31-36); Mean Corpuscular Hemoglobin 34 pg (27-31); Mean Corpuscular Volume 100 fL (80-97); Mean Platelet Volume 7.1 fL (7.4-10.4); Platelet Count 263 10^3/uL (150-450); Red Blood Count 4.22 10^6 /uL (3.70-4.87); Red Cell Distribution Width 13 % (10-15); White Blood Count 5.4 10^3/uL (3.5-10.8)
[2020-04-02 17:10] LABS: ALT 37 U/L (7-52); AST 66 U/L (13-39); Albumin 4.5 g/dL (3.2-5.2); Albumin/Globulin Ratio 1.7 (1-3); Alkaline Phosphatase 48 U/L (34-104); Anion Gap 14 mmol/L (2-11); BUN/Creatinine Ratio 14.1 (8-20); Blood Urea Nitrogen 14 mg/dL (6-24); CO2 Carbon Dioxide 21 mmol/L (22-32); Calcium 9.6 mg/dL (8.6-10.3); Chloride 103 mmol/L (101-111); EGFR African American 71.6 (>60); EGFR Non-African American 59.1 (>60); Globulin 2.7 g/dL (2-4); Glucose 91 mg/dL (70-100); Potassium 2.9 mmol/L (3.5-5.0); Sodium 138 mmol/L (135-145); Total Protein 7.2 g/dL (6.4-8.9)
[2020-04-02] MEDS: NS 0.9% 1000 ml BAG 1,000 ML IV SCH (17:41)
[2020-04-02 17:44] LABS: Acetaminophen < 15 mcg/mL; Salicylate < 2.50 mg/dL (<30)
[2020-04-02 17:58] LABS: Alcohol, S 432 mg/dL (<10); TSH Ultra Thyroid Stim Horm 21.15 mcIU/mL (0.34-5.60)
[2020-04-02] MEDS ORDERED: NS 0.9% w/ 20 Meq KCL 1000 ml 1,000 ML IV SCH (19:00)
[2020-04-02] MEDS ORDERED: Thiamine 100 MG/ML 2 ml VIAL (200 mg) IM ONE (21:23)
[2020-04-02] MEDS: KCL 10 MEQ/50 ML IVPREMIX 10 MEQ/50 ML BAG IV SCH (23:11)
[2020-04-03 04:26] LABS: BUN/Creatinine Ratio 17.3 (8-20); Calcium 7.7 mg/dL (8.6-10.3); EGFR African American 90.2 (>60); EGFR Non-African American 74.5 (>60)
[2020-04-03] MEDS ORDERED: Dextrose 50% Syringe 50 ml 25 GM/50 ML SYRINGE IV PUSH ONE (04:37)
[2020-04-03] MEDS ORDERED: Thiamine 100 MG/ML 2 ml VIAL (200 mg) IM ONE (06:19)
[2020-04-03] MEDS ORDERED: LORazepam 2 mg VIAL 1 ml IV PUSH SCH (07:00)
[2020-04-03 07:09] LABS: Urine Appearance Clear; Urine Bilirubin Negative (Negative); Urine Blood 1+ (Negative); Urine Color Yellow; Urine Glucose 2+(150 mg/dL) (Negative); Urine Ketones 1+ (Negative); Urine Nitrite Negative (Negative); Urine Protein Negative (Negative); Urine Specific Gravity 1.012 (1.010-1.030); Urine Urobilinogen Negative (Negative)
[2020-04-03 07:13] LABS: Urine Bacteria Absent (Absent); Urine Red Blood Cell Trace(0-2/hpf) (Absent); Urine Squamous Epithelial Cell Present (Absent); Urine White Blood Cell Trace(0-5/hpf) (Absent)
[2020-04-03 07:35] LABS: Urine Benzodiazepine Screen None Detected (None Detect); Urine Cannabinoids Screen None Detected (None Detect); Urine Opiates Screen None Detected (None Detect)
[2020-04-03] MEDS: KCL 10 MEQ/50 ML IVPREMIX 10 MEQ/50 ML BAG IV SCH ×2 (08:09)
[2020-04-03 08:27] LABS: Magnesium 1.6 mg/dL (1.9-2.7)
[2020-04-03 08:55] LABS: Free T4 0.64 ng/dL (0.61-1.12)
[2020-04-03] MEDS ORDERED: DULoxetine DR 20 mg CAP PO SCH (09:00)
[2020-04-03] MEDS ORDERED: Magnesium Sulfate IV 3 GM in NS 0.9% 100 ml BAG 100 ML IVPB ONE (10:29)
[2020-04-03] MEDS: Multivitamins/Minerals TAB PO SCH (11:27)
[2020-04-04] MEDS: Multivitamins/Minerals TAB PO SCH (07:58)
[2020-04-04] MEDS ORDERED: Pneumococcal Vac 23-Polyvalent IM ONE (09:00)
[2020-04-04] MEDS ORDERED: Influenza VAC *QUAD* 2020-21* 0.5 ML SYRINGE IM ONE (09:00)
[2020-04-05 06:45] LABS: Calcium 9.8 mg/dL (8.6-10.3); EGFR African American 70.7 (>60); EGFR Non-African American 58.5 (>60); Magnesium 1.9 mg/dL (1.9-2.7); Potassium 4.3 mmol/L (3.5-5.0)
[2020-04-05] MEDS: Multivitamins/Minerals TAB PO SCH (09:20)
[2020-04-05 11:38] VITALS: BP 150/99
== END 2020-04-05 12:00 | disposition home or self-care (01) ==
LOC: ED 15:15 → MED 15:15
PROVIDERS: ADMIT Internal Medicine; ATTEND Internal Medicine

== ENCOUNTER 2022-07-25 10:41 | Observation (INO) ==
[2022-07-25 13:04] LABS: ABS Basophils 0.1 10^3/uL (0.0-0.1); ABS Lymphocytes 3.3 10^3/uL (1.0-4.8); ABS Monocytes 0.4 10^3/uL (0.0-0.9); ABS Neutrophils 4.9 10^3/uL (1.5-7.6); ABS Nucleated RBC 0.01 10^3/ul; Eosinophil % 0.5 %; Hemoglobin 13.5 g/dL (11.5-14.3); Lymphocyte % 37.9 %; Mean Corpuscular Hemoglobin 31.4 pg (27-33); Mean Corpuscular Hgb Conc 36.4 g/dL (31-36); Mean Corpuscular Volume 86.2 fL (80-97); Mean Platelet Volume 6.4 fL (7.5-11.2); Nucleated Red Blood Cells % 0.1 /100 WBC (0.0-0.4); Platelet Count 372 10^3/uL (150-450); Red Blood Count 4.29 10^6/uL (3.63-4.92); Red Cell Distribution Width 13.1 % (12-17); White Blood Count 8.6 10^3/uL (3.8-11.8)
[2022-07-25 13:08] LABS: ALT 23 U/L (7-52); AST 26 U/L (13-39); Albumin 4.4 g/dL (3.2-5.2); Albumin/Globulin Ratio 1.5 (1-3); Alkaline Phosphatase 57 U/L (35-149); Anion Gap 14 mmol/L (2-16); Blood Urea Nitrogen 20 mg/dL (6-24); CO2 Carbon Dioxide 23 mmol/L (22-32); Calcium 9.4 mg/dL (8.6-10.3); Chloride 103 mmol/L (101-111); Creatinine, Serum 0.73 mg/dL (0.51-0.95); Glucose 81 mg/dL (70-100); Magnesium 1.8 mg/dL (1.9-2.7); Potassium 3.9 mmol/L (3.5-5.0); Sodium 140 mmol/L (135-145); Total Protein 7.4 g/dL (6.4-8.9); eGFR CKD-EPI 98.3 (>60)
[2022-07-25 13:36] LABS: Acetaminophen < 15 mcg/mL; Alcohol, S 239 mg/dL (<13); Salicylate < 2.50 mg/dL (<30)
[2022-07-25 13:52] LABS: TSH Ultra Thyroid Stim Horm 1.74 mcIU/mL (0.34-5.60)
[2022-07-25] MEDS ORDERED: Lactated Ringers 1000 ml BAG 1,000 ML IV ONE (14:03)
[2022-07-25] MEDS ORDERED: LORazepam 2 mg VIAL 1 ml IV PUSH ONE (14:11)
[2022-07-25] MEDS ORDERED: Lorazepam PYXIS KEY PRN (14:11)
[2022-07-25] MEDS ORDERED: Ondansetron 4 mg VIAL 2 MG/ML 2 ml VIAL IV PRN (15:02)
[2022-07-25 15:33] LABS: Urine Appearance Cloudy; Urine Bilirubin Negative (Negative); Urine Blood Negative (Negative); Urine Color Yellow; Urine Glucose Negative (Negative); Urine Ketones Trace (Negative); Urine Nitrite Negative (Negative); Urine Protein 1+(30 mg/dL) (Negative); Urine Specific Gravity 1.015 (1.002-1.030); Urine Urobilinogen Negative (Negative)
[2022-07-25 15:38] LABS: Urine Bacteria 1+ (Absent); Urine Red Blood Cell Trace(0-2/hpf) (Absent); Urine Squamous Epithelial Cell Present (Absent); Urine White Blood Cell Trace(0-5/hpf) (Absent)
[2022-07-25 16:01] LABS: Urine Benzodiazepine Screen None Detected (None Detect); Urine Cannabinoids Screen None Detected (None Detect); Urine Opiates Screen None Detected (None Detect)
[2022-07-25] MEDS: Multivitamins/Minerals TAB PO SCH (16:01)
[2022-07-25] MEDS ORDERED: Magnesium Sulfate 2 gm BAG 2 GM/50 ML BAG IVPB ONE (17:02)
[2022-07-25] MEDS: Chlorhexidine MOUTHWASH 0.12% 15 ML UDC SWISH SPIT SCH (18:34)
[2022-07-26] MEDS: Chlorhexidine MOUTHWASH 0.12% 15 ML UDC SWISH SPIT SCH ×5 (00:08→23:35)
[2022-07-26] MEDS: LORazepam 2 mg VIAL 1 ml IV PUSH SCH ×2 (05:17→07:24)
[2022-07-26 06:47] LABS: ABS Eosinophils 0.3 10^3/uL (0.0-0.5); ABS Lymphocytes 1.2 10^3/uL (1.0-4.8); ABS Monocytes 0.5 10^3/uL (0.0-0.9); ABS Neutrophils 4.2 10^3/uL (1.5-7.6); ABS Nucleated RBC 0.01 10^3/ul; Eosinophil % 4.2 %; Hematocrit 35.9 % (35-45); Hemoglobin 12.9 g/dL (11.5-14.3); Lymphocyte % 19.5 %; Mean Corpuscular Hemoglobin 31.3 pg (27-33); Mean Corpuscular Hgb Conc 35.8 g/dL (31-36); Mean Corpuscular Volume 87.5 fL (80-97); Mean Platelet Volume 6.7 fL (7.5-11.2); Nucleated Red Blood Cells % 0.2 /100 WBC (0.0-0.4); Platelet Count 298 10^3/uL (150-450); White Blood Count 6.3 10^3/uL (3.8-11.8)
[2022-07-26 07:07] LABS: Creatinine, Serum 0.8 mg/dL (0.51-0.95); Potassium 4.3 mmol/L (3.5-5.0)
[2022-07-26] MEDS: Multivitamins/Minerals TAB PO SCH (07:23)
[2022-07-26] MEDS: DULoxetine DR 60 mg CAP PO SCH ×2 (18:11→18:14)
[2022-07-26] MEDS ORDERED: Ondansetron ODT 4 mg TAB 4 MG TAB PO PRN (18:43)
[2022-07-26] MEDS: Amoxicillin/Clavul 500/125 TAB (Augmentin 500 mg tab) PO SCH (21:43)
[2022-07-27] MEDS: Multivitamins/Minerals TAB PO SCH (07:34)
[2022-07-27] MEDS: Amoxicillin/Clavul 500/125 TAB (Augmentin 500 mg tab) PO SCH (07:34)
[2022-07-27] MEDS: Chlorhexidine MOUTHWASH 0.12% 15 ML UDC SWISH SPIT SCH (12:24)
[2022-07-27 12:36] VITALS: BP 134/78
== END 2022-07-27 13:50 | disposition home or self-care (01) ==
LOC: EDHOLD 10:41 → ED 10:41 → SUATTDRO 15:02 → MEDTELE 20:33
PROVIDERS: ADMIT Hospitalist; ATTEND Family Medicine